=== PATIENT | female | born 1980 | race Caucasian/White ===

== ENCOUNTER 2017-10-30 07:55 | Emergency (ER) | payer BC ==
[2017-10-30] MEDS ORDERED: NA CHLORIDE 0.9% 1,000 ML ONE (08:28)
[2017-10-30] MEDS ORDERED: MORPHINE 4 MG/ML SYR ONE (08:54)
[2017-10-30] MEDS ORDERED: CIPROFLOXACIN 400mg IV 400 MG/200 ML BAG IV ONE (08:54)
[2017-10-30] MEDS ORDERED: ONDANSETRON 4 MG/2 ML VIAL ONE (08:54)
[2017-10-30] MEDS ORDERED: FAMOTIDINE 20 MG/2 ML VIAL IV ONE (08:54)
[2017-10-30] MEDS ORDERED: METRONIDAZOLE 500mg IVPB 500 MG/100 ML BAG IV ONE (08:54)
[2017-10-30 09:04] LABS: Absolute Lymphocytes (CBC) 1.4 K/uL (0.7-4.9); Absolute Monocytes 0.4 K/uL (0.1-1.3); Absolute Neutrophil 2.1 K/uL (1.8-8.0); Hematocrit 38.3 % (36.0-45.0); Lymphocytes % 34.1 % (15.3-44.8); MCH 27.3 pg (27.0-35.0); MCV 80.9 fL (80-100); MPV 7.3 fL (7.6-11.3); Monocytes % 10.4 % (3.3-12.3); RBC Red Blood Cell Count 4.73 M/uL (3.86-4.86)
[2017-10-30 09:05] LABS: Albumin 3.6 g/dL (3.4-5.0); Bilirubin Direct 0.2 mg/dL (0-0.2); Bilirubin Total 0.8 mg/dL (0.2-1.0); Potassium 3.5 mmol/L (3.5-5.1); Protein, Total 7.7 g/dL (6.4-8.2)
[2017-10-30 09:09] LABS: Urine Bacteria <20 /HPF (<20); Urine Culture Reflex Order NOT NEEDED; Urine Mucus 1+ /HPF (NONE SEEN); Urine RBC <5 /HPF (NONE SEEN)
--- NOTE | 2017-10-30 11:45 | RAD REPORT ---
EXAM DESCRIPTION: CTAbdomen Pelvis W Contrast - 10/30/2017 11:30 am CLINICAL HISTORY: Abdominal pain. ABD PAIN COMPARISON: No comparisons TECHNIQUE: Biphasic CT imaging of the abdomen and pelvis was performed with 100 ml non-ionic IV cont rast. All CT scans are performed using dose optimization technique as appropriate and may include automated exposure control or mA/KV adjustment according to patient size. FINDINGS: The lung bases are clear. Diffuse fatty liver is seen. Small enhancing lesion is seen in the right lobe of the liver measuring 19 mm, which is likely benign, possibly a small hepatic hemangioma, adenoma or FNH. No aggressive cheryl er lesion or intrahepatic biliary dilatation. The spleen, pancreas, adrenal glands and kidneys are wi thin normal limits. No bowel obstruction, free air, free fluid or abscess. The appendix is normal. No evidence of signi ficant lymphadenopathy. No suspicious bony findings. IMPRESSION: No acute intra-abdominal or pelvic finding. Advanced fatty liver with small enhancing lesion in the right lobe as described.
--- NOTE | 2017-10-30 11:50 | ER ---
Nurse's Notes [facility] Name: Maris Harman Age: 37 yrs Sex: Female : 1980 Arrival Date: 10/30/2017 Time: 07:58 Bed 19 Private MD: Out, [facility] Diagnosis: Abdominal tenderness;Vomiting;Diarrhea, unspecified Presentation: 10/30 08:08 Presenting complaint: Patient states: " I have been having diarrhea for a few days and ph my stomach has been hurting." Pt reports diffuse abdominal pain, N/D, denies vomiting or fever. Transition of care: patient was not received from another setting of care. Onset of symptoms was October 30, 2017. Risk Assessment: Do you want to hurt yourself or someone else? Patient reports no desire to harm self or others. Initial Sepsis Screen: Does the patient meet any 2 criteria? No. Patient's initial sepsis screen is negative. Does the patient have a suspected source of infection? No. Patient's initial sepsis screen is negative. Care prior to arrival: None. 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 - Social history:: Smoking status: Patient/guardian denies using tobacco. - Ebola Screening: : No symptoms or risks identified at this time. Screenin:10 Nutritional screening: No deficits noted. Tuberculosis screening: No symptoms or risk sm4 factors identified. Fall Risk IV access (20 points). 09:11 Exposure risk/Travel Screening: None identified. sm4 12:57 Abuse screen: Denies threats or abuse. sm4 Assessment: 08:30 Reassessment: Patient appears in no apparent distress at this time. Patient is alert, sm4 oriented x 3, equal unlabored respirations, skin warm/dry/pink. General: Appears in no apparent distress. comfortable, Behavior is calm, cooperative, appropriate for age. Neuro: No deficits noted. Cardiovascular: No deficits noted. Respiratory: No deficits noted. GI: Bowel sounds present X 4 quads. hyperactive in right upper quadrant, left upper quadrant, right lower quadrant and left lower quadrant Abd is soft X 4 quads Abdomen is tender to palpation X 4 quads. Reports lower abdominal pain, upper abdominal pain, Patient currently denies vomiting. : No deficits noted. EENT: No deficits noted. Derm: No deficits noted. Musculoskeletal: No deficits noted. 10:06 Reassessment: No changes from previously documented assessment. Patient and/or family 4 updated on plan of care and expected duration. Pain level reassessed. Patient is alert, oriented x 3, equal unlabored respirations, skin warm/dry/pink. Patient states feeling better. Patient states symptoms have improved. completed drinking contrast for CT. CT advised and understanding verbalized. . Vital Signs: 08:09 BP 118 / 70; Pulse 72; Resp 18; Temp 97.3; Pulse Ox 97% on R/A; Weight 108.86 kg; ph Height 5 ft. 6 in. (167.64 cm); Pain 7/10; 09:13 BP 131 / 78; Pulse 84; Resp 20; Pulse Ox 99% on R/A; sm4 11:22 BP 128 / 69; Pulse 74; Resp 20; Pulse Ox 99% on R/A; sm4 08:09 Body Mass Index 38.74 (108.86 kg, 167.64 cm) ph ED Course: 07:58 Patient arrived in ED. sb2 07:58 Out, [facility] is Private Physician. sb2 08:02 Zana Gomez MD is Attending Physician. [facility] 08:09 Triage completed. ph 08:10 Arm band placed on Patient placed in an exam room. ph 08:12 Narciso Mccloud, JIN is Primary Nurse. sm4 08:29 Inserted saline lock: 20 gauge in right antecubital area, using aseptic technique. sm4 Blood collected. 08:34 Amylase, Serum Sent. sm4 08:34 Basic Metabolic Panel Sent. sm4 08:34 CBC with Diff Sent. sm4 08:34 Creatinine for Radiology Sent. sm4 08:34 Hepatic Function Sent. sm4 08:34 Lipase Sent. sm4 08:34 Urine Microscopic Only Sent. 4 08:58 Urine Dipstick--Ancillary (enter results) Sent. sm4 09:03 Urine collected: clean catch specimen, cloudy, brandie colored. jb1 09:10 Patient has correct armband on for positive identification. Call light in reach. Side sm4 rails up X 1. Adult w/ patient. 09:11 No apparent distress. sm4 09:11 No provider procedures requiring assistance completed. sm4 11:29 CT completed. Patient tolerated procedure well. Patient moved to CT via wheelchair. sj Patient moved back from CT. 11:30 CT Abd/Pelvis - W/Contrast In Process Unspecified. EDMS 12:59 IV discontinued, intact, bleeding controlled, No redness/swelling at site. Pressure sm4 dressing applied. Administered Medications: 08:22 Drug: NS 0.9% 1000 ml Route: IV; Rate: 1 bolus; Site: right antecubital; sm4 09:45 Follow up: IV Status: Completed infusion; IV Intake: 1000ml sm4 08:50 Drug: Pepcid 20 mg Route: IVP; Infused Over: 2 mins; Site: right antecubital; sm4 10:05 Follow up: Response: No adverse reaction sm4 11:21 Follow up: Response: No adverse reaction sm4 08:52 Drug: Zofran 4 mg Route: IVP; Infused Over: 2 mins; Site: right antecubital; sm4 10:05 Follow up: Response: No adverse reaction sm4 08:54 Drug: morphine 4 mg Route: IVP; Infused Over: 2 mins; Site: right antecubital; sm4 10:05 Follow up: Response: No adverse reaction sm4 08:56 Drug: Flagyl 500 mg Volume: 100 ml; Route: IVPB; Rate: 200 ml/hr; Infused Over: 30 sm4 mins; Site: right antecubital; 09:20 Follow up: IV Status: Completed infusion; IV Intake: 100ml sm4 11:20 Follow up: Response: No adverse reaction sm4 09:25 Drug: Cipro 400 mg Volume: 200 ml; Route: IVPB; Infused Over: 60 mins; Site: right 4 antecubital; 10:30 Follow up: IV Status: Completed infusion; IV Intake: 200ml sm4 11:21 Follow up: Response: No adverse reaction sm4 Intake: 09:20 IV: 100ml; Total: 100ml. sm4 09:45 IV: 1000ml; Total: 1100ml. sm4 10:30 IV: 200ml; Total: 1300ml. sm4 Outcome: 11:49 Discharge ordered by MD. schuler 12:58 Discharged to home ambulatory. [facility] 12:58 Condition: good 12:58 Discharge instructions given to patient, Instructed on discharge instructions, follow up and referral plans. medication usage, Demonstrated understanding of instructions, follow-up care, medications, Prescriptions given X 4. 12:59 Patient left the ED. 4 Signatures: Dispatcher [employer] EDMS Yordan Navarro jb1 Zana Gomez MD MD cha Jones, Graciela Lamb RN RN Kaylyn Wiley [facility] Narciso Mccloud, RN RN 4
--- NOTE | 2017-10-30 11:50 | EDPHYS ---
Physician Documentation [facility] Name: Maris Harman Age: 37 yrs Sex: Female : 1980 Arrival Date: 10/30/2017 Time: 07:58 Bed 19 Private MD: Out, [facility] ED Physician Zana Gomez HPI: 10/30 08:04 This 37 yrs old Female presents to ER via Unassigned with complaints of ganga Abdominal Pain, Nausea/Vomiting/Diarrhea. SVP OF DIGITAL: 08:09 LMP N/A - Hysterectomy ph Historical: - Allergies: 08:10 Phenergan; ph 08:10 Macrobid; ph - PMHx: 08:10 High Cholesterol; ph - PSHx: 08:10 Cholecystectomy; LEFT OVARY; Hysterectomy; ph - Immunization history:: Adult Immunizations unknown. - Social history:: Smoking status: Patient/guardian denies using tobacco. - Ebola Screening: : No symptoms or risks identified at this time. ROS: 08:42 Constitutional: Negative for fever, chills, and weight loss, Eyes: Negative for injury, ganga pain, redness, and discharge, ENT: Negative for injury, pain, and discharge, Neck: Negative for injury, pain, and swelling, Cardiovascular: Negative for chest pain, palpitations, and edema, Respiratory: Negative for shortness of breath, cough, wheezing, and pleuritic chest pain, Back: Negative for injury and pain, : Negative for injury, bleeding, discharge, and swelling, MS/Extremity: Negative for injury and deformity, Skin: Negative for injury, rash, and discoloration, Neuro: Negative for headache, weakness, numbness, tingling, and seizure, Psych: Negative for depression, anxiety, suicide ideation, homicidal ideation, and hallucinations, Allergy/Immunology: Negative for hives, rash, and allergies, Endocrine: Negative for neck swelling, polydipsia, polyuria, polyphagia, and marked weight changes, Hematologic/Lymphatic: Negative for swollen nodes, abnormal bleeding, and unusual bruising. 08:42 Abdomen/GI: Positive for abdominal pain, nausea, diarrhea, of the epigastric area, left upper quadrant, right lower quadrant and left lower quadrant. Exam: 08:42 Constitutional: This is a well developed, well nourished patient who is awake, alert, ganga and in no acute distress. Head/Face: Normocephalic, atraumatic. Eyes: Pupils equal round and reactive to light, extra-ocular motions intact. Lids and lashes normal. Conjunctiva and sclera are non-icteric and not injected. Cornea within normal limits. Periorbital areas with no swelling, redness, or edema. ENT: Nares patent. No nasal discharge, no septal abnormalities noted. Tympanic membranes are normal and external auditory canals are clear. Oropharynx with no redness, swelling, or masses, exudates, or evidence of obstruction, uvula midline. Mucous membranes moist. Neck: Trachea midline, no thyromegaly or masses palpated, and no cervical lymphadenopathy. Supple, full range of motion without nuchal rigidity, or vertebral point tenderness. No Meningismus. Chest/axilla: Normal chest wall appearance and motion. Nontender with no deformity. No lesions are appreciated. Cardiovascular: Regular rate and rhythm with a normal S1 and S2. No gallops, murmurs, or rubs. Normal PMI, no JVD. No pulse deficits. Respiratory: Lungs have equal breath sounds bilaterally, clear to auscultation and percussion. No rales, rhonchi or wheezes noted. No increased work of breathing, no retractions or nasal flaring. Back: No spinal tenderness. No costovertebral tenderness. Full range of motion. Skin: Warm, dry with normal turgor. Normal color with no rashes, no lesions, and no evidence of cellulitis. MS/ Extremity: Pulses equal, no cyanosis. Neurovascular intact. Full, normal range of motion. Neuro: Awake and alert, GCS 15, oriented to person, place, time, and situation. Cranial nerves II-XII grossly intact. Motor strength 5/5 in all extremities. Sensory grossly intact. Cerebellar exam normal. Normal gait. Psych: Awake, alert, with orientation to person, place and time. Behavior, mood, and affect are within normal limits. 08:42 Abdomen/GI: Inspection: distension, Bowel sounds: normal, Palpation: moderate abdominal tenderness, in the left upper quadrant, right lower quadrant and left lower quadrant. Vital Signs: 08:09 BP 118 / 70; Pulse 72; Resp 18; Temp 97.3; Pulse Ox 97% on R/A; Weight 108.86 kg; ph Height 5 ft. 6 in. (167.64 cm); Pain 7/10; 09:13 BP 131 / 78; Pulse 84; Resp 20; Pulse Ox 99% on R/A; sm4 11:22 BP 128 / 69; Pulse 74; Resp 20; Pulse Ox 99% on R/A; sm4 08:09 Body Mass Index 38.74 (108.86 kg, 167.64 cm) ph MDM: 08:02 Patient medically screened. [facility] 08:44 Data reviewed: vital signs, nurses notes, lab test result(s), radiologic studies, CT ganga scan. 10/30 08:02 Order name: Amylase, Serum; Complete Time: 09:41 [facility] 10/30 08:02 Order name: Basic Metabolic Panel; Complete Time: 09:41 [facility] 10/30 08:02 Order name: CBC with Diff; Complete Time: 09:41 [facility] 10/30 08:02 Order name: Creatinine for Radiology; Complete Time: 09:41 [facility] 10/30 08:02 Order name: Hepatic Function; Complete Time: 09:41 [facility] 10/30 08:02 Order name: Lipase; Complete Time: 09:41 [facility] 10/30 08:02 Order name: Urine Microscopic Only; Complete Time: 09:41 [facility] 10/30 08:39 Order name: Urine Dipstick--Ancillary (enter results) eb 10/30 08:40 Order name: CT Abd/Pelvis - W/Contrast; Complete Time: 11:49 [facility] 10/30 08:02 Order name: Urine Test (obtain specimen); Complete Time: 08:34 [facility] 10/30 08:02 Order name: IV Saline Lock; Complete Time: 08:28 [facility] 10/30 08:02 Order name: Labs collected and sent; Complete Time: 08:28 [facility] 10/30 08:02 Order name: Urine Dipstick-Ancillary (obtain specimen); Complete Time: 08:34 [facility] Administered Medications: 08:22 Drug: NS 0.9% 1000 ml Route: IV; Rate: 1 bolus; Site: right antecubital; 4 09:45 Follow up: IV Status: Completed infusion; IV Intake: 1000ml 4 08:50 Drug: Pepcid 20 mg Route: IVP; Infused Over: 2 mins; Site: right antecubital; sm4 10:05 Follow up: Response: No adverse reaction 4 11:21 Follow up: Response: No adverse reaction 4 08:52 Drug: Zofran 4 mg Route: IVP; Infused Over: 2 mins; Site: right antecubital; 4 10:05 Follow up: Response: No adverse reaction 4 08:54 Drug: morphine 4 mg Route: IVP; Infused Over: 2 mins; Site: right antecubital; sm4 10:05 Follow up: Response: No adverse reaction 4 08:56 Drug: Flagyl 500 mg Volume: 100 ml; Route: IVPB; Rate: 200 ml/hr; Infused Over: 30 sm4 mins; Site: right antecubital; 09:20 Follow up: IV Status: Completed infusion; IV Intake: 100ml sm4 11:20 Follow up: Response: No adverse reaction 4 09:25 Drug: Cipro 400 mg Volume: 200 ml; Route: IVPB; Infused Over: 60 mins; Site: right 4 antecubital; 10:30 Follow up: IV Status: Completed infusion; IV Intake: 200ml sm4 11:21 Follow up: Response: No adverse reaction 4 Disposition: 10/30/17 11:49 Discharged to Home. Impression: Abdominal tenderness, Vomiting, Diarrhea, unspecified. - Condition is Stable. - Discharge Instructions: Abdominal Pain, Adult, Food Choices to Help Relieve Diarrhea, Adult, Diarrhea, Adult, Nausea and Vomiting, Adult, [id number], Abdominal Pain, Adult, [id number]. - Prescriptions for Bentyl 20 mg Oral Tablet - take 1 tablet by ORAL route every 6 hours As needed; 20 tablet. Flagyl 500 mg Oral Tablet - take 1 tablet by ORAL route every 12 hours for 5 days; 10 tablet. Pepcid 20 mg Oral Tablet - take 1 tablet by ORAL route every 12 hours for 10 days; 20 tablet. Zofran 4 mg Oral Tablet - take 1 tablet by ORAL route every 12 hours As needed; 20 tablet. Cipro 500 mg Oral Tablet - take 1 tablet by ORAL route every 12 hours for 5 days; 10 tablet. - Medication Reconciliation Form, Thank You Letter, Antibiotic Education, Prescription Opioid Use, Work release form form. - Follow up: Private Physician; When: 2 - 3 days; Reason: Recheck today's complaints, Continuance of care, Re-evaluation by your physician. - Problem is new. - Symptoms have improved. Signatures: Dispatcher [employer] EDZana Carter MD MD cha Hall, Patricia, RN RN ph Narciso Mccloud, RN RN sm4 Corrections: (The following items were deleted from the chart) 12:59 11:49 10/30/2017 11:49 Discharged to Home. Impression: Abdominal tenderness; Vomiting; sm4 Diarrhea, unspecified. Condition is Stable. Discharge Instructions: Abdominal Pain, Adult, Food Choices to Help Relieve Diarrhea, Adult, Diarrhea, Adult, Nausea and Vomiting, Adult, [id number], Abdominal Pain, Adult, [id number]. Prescriptions for Bentyl 20 mg Oral Tablet - take 1 tablet by ORAL route every 6 hours As needed; 20 tablet, Flagyl 500 mg Oral Tablet - take 1 tablet by ORAL route every 12 hours for 5 days; 10 tablet, Pepcid 20 mg Oral Tablet - take 1 tablet by ORAL route every 12 hours for 10 days; 20 tablet, Zofran 4 mg Oral Tablet - take 1 tablet by ORAL route every 12 hours As needed; 20 tablet, Cipro 500 mg Oral Tablet - take 1 tablet by ORAL route every 12 hours for 5 days; 10 tablet. and Forms are Medication Reconciliation Form, Thank You Letter, Antibiotic Education, Prescription Opioid Use. Follow up: Private Physician; When: 2 - 3 days; Reason: Recheck today's complaints, Continuance of care, Re-evaluation by your physician. Problem is new. Symptoms have improved. ganga
[2017-10-30 14:20] LABS: Urine Blood NEGATIVE (NEG); Urine Glucose NEGATIVE (NEG); Urine Protein NEGATIVE (NEG)
== END 2017-10-30 12:59 | disposition home or self-care (01) ==
LOC: ER 07:55
DX: R19.7 Diarrhea, unspecified (principal); R11.10 Vomiting, unspecified; Z88.1 Allergy status to other antibiotic agents; Z88.8 Allergy status to other drugs, medicaments and biological substances
CPT/HCPCS: 36415; 74177; 80048; 80076; 81003; 81015; 82150; 83690; 85025; 96361; 96365; 96367; 96375; 99284; J0744; J2405; J7030; Q9967